=== PATIENT | female | born 1995 | race Two or more races ===

== ENCOUNTER 2017-08-30 13:11 | Emergency (ER) | payer SELFPAY ==
[2017-08-30 13:23] VITALS: TEMP 98.6; BMI 30.7
[2017-08-30] MEDS ORDERED: ACETAMINOPHEN 1000 MG/100 ML VIAL (NON FORMULARY) IVPB ONE (13:28)
[2017-08-30] MEDS ORDERED: SODIUM CHLORIDE 1,000 ML IV STA (13:28)
--- NOTE | 2017-08-30 13:37 | PDOC ---
History of Present Illness <Mane Patel - Last Filed: 08/30/17 17:11> - History of Present Illness Initial Comments: 08/30/17 13:29 21 yo F with no significant pmh who p/w syncopal event. Patient reports waking up this morning with posterior neck stiffness and left sided frontal headache. Later reports 2 episodes of emesis. Patient reports that first episode of vomiting was bilious and second episode was streaked with blood. N/V now resolved. Patient called , who called patient neighbor who came into apartment of pt. to assist her. He states that she "fainted" when turning the corner and controlled her to the ground. Patient reports hitting her head, with LOC for seconds. No identifiable triggers or alleviators. Patient reports being well hydrated and in usual state of health yesterday. Denies F/C, CP, SOB, abdominal pain, diarrhea, constipation, BPR, urinary complaints, weakness, lightheadedness, sensory changes. PMHx:H/o anemia on iron supplementation. Denies BPR, or h/o GI bleed. Denies h/ o endoscopy. ROS: as noted above SHx: Denies Etoh, tobacco, or IVDA. Allergies: NKDA <Hany Manriquez - Last Filed: 08/30/17 19:41> - General Chief Complaint: Nausea/Vomiting Stated Complaint: VOMITING Time Seen by Provider: 08/30/17 13:27 Past History <Mane Patel - Last Filed: 08/30/17 17:11> - Past Medical History Anemia: Yes COPD: No - Suicide/Smoking/Psychosocial Hx Smoking History: Never smoked Have you smoked in the past 12 months: No Information on smoking cessation initiated: No Hx Alcohol Use: No Drug/Substance Use Hx: No Substance Use Type: None <Hany Manriquez - Last Filed: 08/30/17 19:41> - Past Medical History Allergies/Adverse Reactions: Allergies Allergy/AdvReac Type Severity Reaction Status Date / Time No Known Allergies Allergy Verified 08/30/17 13:21 Home Medications: Ambulatory Orders Ferrous Sulfate [Iron] 325 mg PO DAILY 08/30/17 NK [No Known Home Medication] 08/30/17 Review of Systems - Review of Systems Comments:: 08/30/17 13:39 GENERAL/CONSTITUTIONAL: No fever or chills. No weakness. HEAD, EYES, EARS, NOSE AND THROAT: No change in vision. No ear pain or discharge. No sore throat. CARDIOVASCULAR: No chest pain or shortness of breath RESPIRATORY: No cough, wheezing, or hemoptysis. GASTROINTESTINAL: No nausea, vomiting, diarrhea or constipation. GENITOURINARY: No dysuria, frequency, or change in urination. MUSCULOSKELETAL: No joint or muscle swelling or pain. No neck or back pain. SKIN: No rash NEUROLOGIC: + headache, and neck pain. No vertigo, or change in strength/ sensation. ENDOCRINE: No increased thirst. No abnormal weight change HEMATOLOGIC/LYMPHATIC: No anemia, easy bleeding, or history of blood clots. ALLERGIC/IMMUNOLOGIC: No hives or skin allergy. <Hany Manriquez - Last Filed: 08/30/17 19:41> *Physical Exam - Vital Signs Last Vital Signs Temp Pulse Resp BP Pulse Ox 98.6 F 68 20 111/66 100 08/30/17 13:21 08/30/17 13:21 08/30/17 13:21 08/30/17 13:21 08/30/17 13:21 <Mane Patel - Last Filed: 08/30/17 17:11> - Vital Signs Last Vital Signs Temp Pulse Resp BP Pulse Ox 98.6 F 68 20 111/66 100 08/30/17 13:21 08/30/17 13:21 08/30/17 13:21 08/30/17 13:21 08/30/17 13:21 - Physical Exam Comments: 08/30/17 13:40 GENERAL: Awake, alert, and fully oriented, in no acute distress HEAD: No signs of trauma, normocephalic, atraumatic EYES: PERRLA, EOMI, sclera anicteric, conjunctiva clear ENT: Auricles normal inspection, hearing grossly normal, nares patent, oropharynx clear without exudates. Moist mucosa NECK: Normal ROM, supple, no lymphadenopathy, JVD, or masses LUNGS: No distress, speaks full sentences, clear to auscultation bilaterally HEART: Regular rate and rhythm, normal S1 and S2, no murmurs, rubs or gallops, peripheral pulses normal and equal bilaterally. ABDOMEN: Soft, nontender, normoactive bowel sounds. No guarding, no rebound. No masses EXTREMITIES : Normal inspection, Normal range of motion, no edema. No clubbing or cyanosis. NEUROLOGICAL: Cranial nerves II through XII grossly intact. Normal speech, normal gait, no focal sensorimotor deficits SKIN: Warm, Dry, normal turgor, no rashes or lesions noted <Hany Manriquez - Last Filed: 08/30/17 19:41> ED Treatment Course - LABORATORY CBC & Chemistry Diagram: 08/30/17 13:43 08/30/17 13:27 - ADDITIONAL ORDERS Additional order review: Laboratory Results 08/30/17 08/30/17 08/30/17 14:44 13:43 13:43 PT with INR 12.00 INR 1.06 Sodium Potassium Chloride Carbon Dioxide Anion Gap BUN Creatinine Creat Clearance w eGFR Random Glucose Calcium Total Bilirubin AST ALT Alkaline Phosphatase Total Protein Albumin Serum , Qual Negative Blood Type AB POSITIVE Antibody Screen Negative 08/30/17 13:27 PT with INR INR Sodium 138 Potassium 4.0 Chloride 104 Carbon Dioxide 27 Anion Gap 7 L BUN 8 Creatinine 0.7 Creat Clearance w eGFR > 60 Random Glucose 85 Calcium 9.4 Total Bilirubin 0.6 AST 17 ALT 23 Alkaline Phosphatase 89 Total Protein 8.8 H Albumin 4.4 Serum , Qual Blood Type Antibody Screen 08/30/17 13:43 RBC 5.39 H MCV 80.5 MCHC 32.0 RDW 13.4 MPV 9.7 Neutrophils % 80.8 Lymphocytes % 12.7 Monocytes % 5.3 Eosinophils % 0.6 Basophils % 0.6 - Medications Given in the ED: ED Medications Discontinued Medications Generic Name Dose Route Start Last Admin Trade Name Freq PRN Reason Stop Dose Admin Acetaminophen 1,000 mg 08/30/17 13:28 08/30/17 14:21 Ofirmev Injection - IVPB 08/30/17 13:29 1,000 mg ONCE ONE Administration Sodium Chloride 1,000 mls @ 1,000 mls/hr 08/30/17 13:28 08/30/17 14:20 Normal Saline - IV 08/30/17 14:27 1,000 mls/hr ASDIR STA Administration <Mane Patel - Last Filed: 08/30/17 17:11> - LABORATORY CBC & Chemistry Diagram: 08/30/17 13:43 08/30/17 13:27 <Hany Manriquez - Last Filed: 08/30/17 19:41> Medical Decision Making - Medical Decision Making 08/30/17 13:33 21 yo F with no significant pmh who p/w syncopal event. VSS, AF, A&OX3. Absent nuchal rigidity, brudzinski and kernig sign on physical exam. Emanuel CTH negative. Will still consider meningitis.Differential also includes Borhaave, Anel jenna. Low suspicion of SAH. Will assess for dysarrythmia, hypovolemia, anemia, hypoglycemia, electrolyte abnml, toxic or metabolic derangements,acid- base disturbances, or underlying infection. ED Course: CBC, CMP, UA, Urine Preg, T&Sx2, PT/INR NS 1, Acetaminophen 08/30/17 15:39 CBC: Unremarkable 08/30/17 16:17 CMP: Unremarkable 08/30/17 16:58 EKG: NSR with absent ODELL, STD, or TWI. Nml interval duration and axis. <Hany Manriquez - Last Filed: 08/30/17 19:41> *DC/Admit/Observation/Transfer <Mane Patel - Last Filed: 08/30/17 17:11> - Attestations Physician Attestion: 08/30/17 17:23 I attest to the information provided in this note. <Hany Manriquez - Last Filed: 08/30/17 19:41> Diagnosis at time of Disposition: Neck muscle spasm Syncope Qualifiers: Syncope type: vasovagal syncope Qualified Code(s): R55 - Syncope and collapse - Patient Instructions Printed Discharge Instructions: DI for Vomiting -- Adult Additional Instructions: Please return to the emergency department with any new or worsening symptoms or concerns. Please follow up with your primary care physician within 72 hours.
--- NOTE | 2017-08-30 13:38 | PDOC ---
Attending Attestation - Resident Resident Name: Jonas Manriquezson - ED Attending Attestation I have performed the following: I have examined & evaluated the patient, The case was reviewed & discussed with the resident, I agree w/resident's findings & plan, Exceptions are as noted - HPI HPI: 08/30/17 14:04 21y F hx of anemia presetns with episode of syncope. Pt woke up with mild neck stiffness that was wors when she was moving her head, felt alittle dizzy nauseus and vomited x 2 (1 was green the other was streaked with blood), pt syncopized when she ambulated from the bathroom after vomiting in the bathroom. was with her who helped her to lay down. pt notes her neck pain is significantly imroved but now has a mild frontal headache. no associated fever/ chills, vision changes, numbness/tingling/weakness, cp, palpitations,a bd pain, diarrhea, dysuria. pts exam noted for mild paraspinal tenderness to trapezius b/l, mildly tender temples neuro exam: symmetric sensation in arms/legs/face, no facial assymetry, normal speech, symmetric movement of arms/legs/face. neck: no bruits appreciated cardiac exam: rrr, no m/r/g pulm: cta b/l suspect vasovagal episode wit hneck spasm no clincal signs of SAH, carotid disseciton will ck lbas fiuds for hydration tylenol for pain will reassess - Physicial Exam PE: 08/30/17 16:58 see above - Medical Decision Making 08/30/17 16:58 pts labs unremarkble feeling improved will dc with pmd fu return precautions were discussed Heart Score/ECG Review - ECG Impressions Comment:: 08/30/17 15:49 Twelve-lead EKG was performed and reviewed by me. There is normal sinus rhythm with a normal rate. rate of 69 The axis is normal. The intervals are normal. There is normal R wave progression There are no ST or T wave abnormalities. Impression: Normal twelve-lead EKG
[2017-08-30] MEDS ORDERED: ACETAMINOPHEN INJECTION 100 ML IVPB ONE (13:43)
[2017-08-30 14:37] LABS: BASO % 0.6 % (0-2.0); EOS % 0.6 % (0-4.5); HEMATOCRIT 43.3 % (32.4-45.2); HEMOGLOBIN 13.8 GM/dL (10.7-15.3); LYMPH % 12.7 % (8-40); MCH 25.7 pg (25.7-33.7); MEAN CELL VOLUME 80.5 fl (80-96); MEAN PLT VOLUME 9.7 fl (7.5-11.1); MONO % 5.3 % (3.8-10.2); NEUT % 80.8 % (42.8-82.8); PLATELET COUNT 251 K/MM3 (134-434); RBC 5.39 M/mm3 (3.60-5.2); RDW 13.4 % (11.6-15.6); WHITE BLOOD COUNT 8.2 K/mm3 (4.0-10.0)
[2017-08-30 14:55] LABS: INR 1.06 (0.82-1.09)
[2017-08-30 15:57] LABS: ANION GAP 7 (8-16); BLOOD UREA NITROGEN 8 mg/dL (7-18); CALCIUM 9.4 mg/dL (8.5-10.1); CHLORIDE 104 mmol/L (98-107); CO2 27 mmol/L (21-32); CREATININE 0.7 mg/dL (0.55-1.02); GLUCOSE,RANDOM 85 mg/dL (74-106); SODIUM 138 mmol/L (136-145)
[2017-08-30 15:58] LABS: ALBUMIN 4.4 g/dl (3.4-5.0); ALK PHOS 89 U/L (45-117); BILIRUBIN,TOTAL 0.6 mg/dL (0.2-1.0); SGOT/AST 17 U/L (15-37); SGPT/ALT 23 U/L (12-78); TOT PROT 8.8 g/dl (6.4-8.2)
[2017-08-30] MEDS ORDERED: KETOROLAC TROMETHAMINE 30 MG/1 ML VIAL IVPUSH ONE (17:11)
[2017-08-30] MEDS ORDERED: KETOROLAC TROMETHAMINE 15 MG/ML VIAL ONE (17:21)
[2017-08-30 19:39] VITALS: BP 117/66; PULSE 67
--- NOTE | 2017-08-31 17:50 | EKG ---
Test Reason : Blood Pressure : / mmHG Vent. Rate : 069 BPM Atrial Rate : 069 BPM P-R Int : 148 ms QRS Dur : 096 ms QT Int : 376 ms P-R-T Axes : 072 066 056 degrees QTc Int : 402 ms NORMAL SINUS RHYTHM WITH SINUS ARRHYTHMIA NORMAL ECG NO PREVIOUS ECGS AVAILABLE Confirmed by BHUPINDER HURTADO MD ([id number]) on 08/31/2017 5:50:17 PM Referred By: Confirmed By:BHUPINDER HURTADO MD
== END 2017-08-30 19:48 | disposition home or self-care (01) ==
LOC: JER 13:11
PROC: 3E0337Z Introduction of Electrolytic and Water Balance Substance into Peripheral Vein, Percutaneous Approach (ICD-10-PCS; principal; 2017-08-30)
PROC: 3E033NZ Introduction of Analgesics, Hypnotics, Sedatives into Peripheral Vein, Percutaneous Approach (ICD-10-PCS; 2017-08-30)
PROC: 3E0333Z Introduction of Anti-inflammatory into Peripheral Vein, Percutaneous Approach (ICD-10-PCS; 2017-08-30)
DX: M62.838 Other muscle spasm (principal); R55 Syncope and collapse; D64.9 Anemia, unspecified
CPT/HCPCS: 36415; 71045-TC-FY; 80053; 84703; 85025; 85610; 86850; 86900; 86901; 93005; 93010; 99282-25; J0131; J7030

== ENCOUNTER 2018-07-18 18:15 | Emergency (ER) | payer OTHER ==
--- NOTE | 2018-07-18 18:22 | PDOC ---
Rapid Medical Evaluation Time Seen by Provider: 07/18/18 18:20 Medical Evaluation: Allergies Allergy/AdvReac Type Severity Reaction Status Date / Time No Known Allergies Allergy Verified 08/30/17 13:21 07/18/18 18:20 HPI: Pelvic and back pain about 4 weeks gravid PE: Deferred Orders: Labs and US Discharge Disposition - Diagnosis Threatened - Referrals - Patient Instructions - Post Discharge Activity
[2018-07-18 18:25] VITALS: BP 110/50; PULSE 72; TEMP 98.2; BMI 29.0
--- NOTE | 2018-07-18 20:08 | PDOC ---
History of Present Illness <Shanique Ramos - Last Filed: 07/18/18 21:04> - General History Source: Patient Exam Limitations: No Limitations <Bess Brunner - Last Filed: 07/18/18 21:12> - General Chief Complaint: Pain Stated Complaint: PELVIC PAIN Time Seen by Provider: 07/18/18 18:20 Past History <Shanique Ramos - Last Filed: 07/18/18 21:04> - Past Medical History Anemia: Yes COPD: No - Suicide/Smoking/Psychosocial Hx Smoking History: Never smoked Have you smoked in the past 12 months: No Information on smoking cessation initiated: No Hx Alcohol Use: No Drug/Substance Use Hx: No Substance Use Type: None <Bess Brunner - Last Filed: 07/18/18 21:12> - Past Medical History Allergies/Adverse Reactions: Allergies Allergy/AdvReac Type Severity Reaction Status Date / Time No Known Allergies Allergy Verified 07/18/18 18:21 Home Medications: Ambulatory Orders Ferrous Sulfate [Iron] 325 mg PO DAILY 08/30/17 NK [No Known Home Medication] 08/30/17 *Physical Exam - Vital Signs Last Vital Signs Temp Pulse Resp BP Pulse Ox 98.2 F 72 16 110/50 L 100 07/18/18 18:23 07/18/18 18:23 07/18/18 18:23 07/18/18 18:23 07/18/18 18:23 <Shanique Ramos - Last Filed: 07/18/18 21:04> - Vital Signs Last Vital Signs Temp Pulse Resp BP Pulse Ox 98.2 F 72 16 110/50 L 100 07/18/18 18:23 07/18/18 18:23 07/18/18 18:23 07/18/18 18:23 07/18/18 18:23 - Physical Exam General Appearance: No: Apparent Distress Respiratory/Chest: positive: Lungs Clear, Normal Breath Sounds. negative: Respiratory Distress Cardiovascular: positive: Regular Rhythm, Regular Rate, S1, S2. negative: Murmur Female Pelvic Exam: positive: discharge (whitish discharge), adnexal tenderness (mild R adnexal tenderness), other (cervical os closed). negative: CMT, vaginal bleeding Gastrointestinal/Abdominal: positive: Normal Bowel Sounds, Soft. negative: Tender, Distended, Guarding, Rebound Integumentary: positive: Normal Color Neurologic: positive: Alert, Normal Mood/Affect <Bess Brunner - Last Filed: 07/18/18 21:12> ED Treatment Course - LABORATORY CBC & Chemistry Diagram: 07/18/18 19:55 07/18/18 19:55 - ADDITIONAL ORDERS Additional order review: Laboratory Results 07/18/18 05 19:55 19:55 Sodium 134 L Potassium 3.6 Chloride 102 Carbon Dioxide 26 Anion Gap 6 L BUN 7 Creatinine 0.6 Creat Clearance w eGFR 126.20 Random Glucose 90 Calcium 9.2 Total Bilirubin 0.3 AST 11 L ALT 17 Alkaline Phosphatase 79 Total Protein 8.4 H Albumin 4.1 Beta HCG, Quant 727162.1 Urine Color Yellow Urine Appearance Clear Urine pH 6.0 Ur Specific [place] 1.029 Urine Protein Negative Urine Glucose (UA) Negative Urine Ketones 1+ H Urine Blood Negative Urine Nitrite Negative Urine Bilirubin Negative Urine Urobilinogen 1.0 Ur Leukocyte Esterase Negative 07/18/18 19:55 RBC 4.95 MCV 80.6 MCHC 32.3 RDW 14.0 MPV 9.4 Neutrophils % 73.6 Lymphocytes % 20.0 D Monocytes % 5.5 Eosinophils % 0.5 Basophils % 0.4 <Shanique Ramos - Last Filed: 07/18/18 21:04> - LABORATORY CBC & Chemistry Diagram: 07/18/18 19:55 07/18/18 19:55 <Bess Brunner - Last Filed: 07/18/18 21:12> Medical Decision Making - Medical Decision Making The patient was seen and evaluated in conjunction with midlevel provider under my direct supervision, ancillary studies were reviewed. I agree with the plan as outlined YAJAIRA Brunner. HPI, workup/dispo as outlined. VS reviewed, wnl. pelvic sono with live IUP at 7 w 5d labs and UA neg 07/18/18 21:04 <Shanique Ramos - Last Filed: 07/18/18 21:04> - Medical Decision Making 22 y/o F G0 with no sig pmh presents with lower abd and lower back pain x 3 days. States she found out she was 1.5 weeks ago via home test. Has not yet had evaluation done by an [facility] doctor. Has been having NBNB emesis every time x 2 weeks. Denies fever, sob, cp, diarrhea, urinary complaints , unusual vaginal discharge, vaginal bleeding. LNMP 05/30/18 R/O ectopic Labs drawn and sent Pelvic US pending 07/18/18 20:05 Ultrasound confirms IUP at 7 weeks 5 days UA negative Patient resting in NAD, eating chips Stable for dc 07/18/18 21:09 <Bess Brunner - Last Filed: 07/18/18 21:12> *DC/Admit/Observation/Transfer <RachelShanique Land - Last Filed: 07/18/18 21:04> - Discharge Dispostion Decision to Admit order: No <Bess Brunner - Last Filed: 07/18/18 21:12> Diagnosis at time of Disposition: Pelvic pain affecting Qualifiers: Trimester: first trimester Qualified Code(s): O26.891 - Other specified related conditions, first trimester; R10.2 - Pelvic and perineal pain - Discharge Dispostion Disposition: HOME Condition at time of disposition: Stable - Referrals Referrals: Fabiana Campos [Primary Care Provider] - 2 Days - Patient Instructions Additional Instructions: Thank you for choosing [facility]. It was a pleasure taking care of you. Your pelvic ultrasound shows that you are Your lab work was unremarkable Please be sure to follow-up with [facility] for continued care during your Be sure to start taking vitamins daily Return to the Emergency Department if your symptoms worsen or persist, you have fever, shortness of breath, chest pain, severe abdominal pain, vaginal bleeding or other concerning symptoms. - Post Discharge Activity
[2018-07-18 20:13] LABS: BASO % 0.4 % (0-2.0); EOS % 0.5 % (0-4.5); HEMATOCRIT 39.9 % (32.4-45.2); HEMOGLOBIN 12.9 GM/dL (10.7-15.3); MCHC 32.3 g/dl (32.0-36.0); MEAN CELL VOLUME 80.6 fl (80-96); MEAN PLT VOLUME 9.4 fl (7.5-11.1); MONO % 5.5 % (3.8-10.2); NEUT % 73.6 % (42.8-82.8); PLATELET COUNT 224 K/MM3 (134-434); RBC 4.95 M/mm3 (3.60-5.2); WHITE BLOOD COUNT 9.6 K/mm3 (4.0-10.0)
[2018-07-18 20:18] LABS: URINE APPEARANCE CLEAR; URINE BILIRUBIN NEGATIVE (NEGATIVE); URINE COLOR YELLOW; URINE GLUCOSE (UA) NEGATIVE (NEGATIVE); URINE KETONE 1+ (NEGATIVE); URINE LEUK ESTERASE NEGATIVE (NEGATIVE); URINE NITRITE NEGATIVE (NEGATIVE); URINE PROTEIN NEGATIVE (NEGATIVE)
[2018-07-18 20:49] LABS: ALBUMIN 4.1 g/dl (3.4-5.0); ALK PHOS 79 U/L (45-117); ANION GAP 6 MMOL/L (8-16); BILIRUBIN,TOTAL 0.3 mg/dL (0.2-1); BLOOD UREA NITROGEN 7 mg/dL (7-18); CALCIUM 9.2 mg/dL (8.5-10.1); CHLORIDE 102 mmol/L (98-107); CO2 26 mmol/L (21-32); CREATININE 0.6 mg/dL (0.55-1.3); GLUCOSE,RANDOM 90 mg/dL (74-106); POTASSIUM 3.6 mmol/L (3.5-5.1); SGOT/AST 11 U/L (15-37); SGPT/ALT 17 U/L (13-61); SODIUM 134 mmol/L (136-145); TOT PROT 8.4 g/dl (6.4-8.2)
== END 2018-07-18 21:19 | disposition home or self-care (01) ==
LOC: JER 18:15
DX: O26.891 Other specified pregnancy related conditions, first trimester (principal); R10.2 Pelvic and perineal pain; Z3A.01 Less than 8 weeks gestation of pregnancy
CPT/HCPCS: 36415; 76801-TC; 80053; 81003; 84702; 85025; 87086; 99282-25